=== PATIENT | male | born 1935 | race Caucasian/White ===

== ENCOUNTER 2016-11-12 16:51 | Emergency (ER) | payer OTHER, BC, MEDICARE ==
[~2016-11-12] VITALS: Ht 188 cm; Wt 74.4 kg
[~2016-11-12 16:51] MED LIST: ASPIRIN EC81 M1 PO; FISH OIL300 MG PO; IRON325 M3 PO; MULTI-DAY VITA1 EACH PO; VANCOMYCIN1 GM/2501 IV; VITAMIN E100 UNI2 PO
--- NOTE | 2016-11-12 17:33 | ED GENERAL ADULT ---
History of Present Illness General Chief Complaint: General Adult Stated Complaint: ?FEVER/NO APPETITE/WEIGHT LOSS Source: patient, family, old records Exam Limitations: no limitations Vital Signs & Intake/Output Vital Signs & Intake/Output Vital Signs Date Time Temp Pulse Resp B/P Pulse O2 O2 Flow FiO2 Ox Delivery Rate 11/12 1706 99.5 92 18 114/69 98 Room Air Allergies Coded Allergies: NO KNOWN ALLERGIES (06/18/16) Reconcile Medications Aspirin (Ecotrin*) 81 MG TABLET.DR 1 TAB PO QPM HEART/SUPPLEMENT (Reported) Multivitamin (Multi-Day Vitamins) 1 EACH TABLET 1 TAB PO DAILY SUPPLEMENT ( Reported) [place]-3 Fatty Acids (Fish Oil) (Unknown Strength) CAPSULE (Unknown Dose) PO DAILY SUPPLEMENT (Reported) Vitamin E Mixed (Vitamin E) (Unknown Strength) TABLET 400 UNITS PO SI SUPPLEMENT (Reported) Triage Note: RECEIVED 81 YO MALE C/O FEELS UNDER THE WEATHER THE LAST FEW DAYS, PT REPORTS SLEEPING MORE, WEAK. REPORTS NOT EATING WELL, RECENT WEIGHT LOSS. NO C/O CP/SOB/ABDOMINAL PAIN. Triage Nurses Notes Reviewed? yes Onset: Gradual Duration: day(s): (3), intermittent, waxing and waning Timing: recent history Injury Environment: home Severity: mild Severity Numbers: 4 No Modifying Factors: none Associated Symptoms: denies HPI: 81-year-old male presents with his for evaluation. According to the patient he has been feeling lethargic for the past few days which she attributes to shoveling snow and overdoing it outside. The patient denies any fever chills cough congestion or chest pain palpitations dizziness lightheadedness abdominal pain nausea vomiting or diarrhea. No recent black or bloody stools or recent weight loss. He has not sought care for the symptoms until today because he states his made him come. Patient reports to poor appetite. No urinary symptoms urgency frequency dysuria. There are no modifying factors or associated symptoms otherwise. (LUZ BELL,UMESH) Past History Travel History Traveled to [place] past 21 day No Medical History Any Pertinent Medical History? 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 No (UMESH MORRISON) Review of Systems Review of Systems Constitutional: Reports: see HPI. All Other Systems: Reviewed and Negative Comments Review of systems: See HPI, All other systems negative. Constitutional, no chills no fever, no malaise HEENT: no sore throat no congestion, no ear pain Cardiovascular: No chest pain , no palpitation Skin, no rashes, no change in skin Respiratory: No dyspnea no cough no sputum no hemoptysis GI: No nausea no vomiting, no diarrhea, no bloating/constipation : No dysuria No hematuria, no frequency, no discharge Muscle skeletal: No joint pain, no joint swelling, no back pain Neurologic: No numbness no headache Psych: No stress Heme/endocrine: No bruising no bleeding Immunology: No lymphadenopathy, (UMESH MORRISON) Physical Exam Physical Exam General Appearance: well developed/nourished, alert, awake Comments: Well-developed well-nourished person in no acute distress HEENT: Normal EENT exam; PERRL, EOMI, no nystagmus. HEAD is atraumatic. moist mucous membranes. Neck: Supple, no lymphadenopathy, normal range of motion without pain or tenderness Back: Nontender, no CVA tenderness. Full range of motion Cardiovascular: Regular rate and rhythms no murmurs rubs or gallops, normal JVP Respiratory: Chest nontender.There were no bony deformities, no asymmetry. No respiratory distress. Patient speaking in full complete sentences. Breath sounds clear to auscultation bilaterally: NO W/R/R Abdomen: Soft, nontender nondistended, no appreciable organomegaly. Normal bowel sounds. No rebound/guarding, No appreciable enlargement of the abdominal aorta, No ascites. Extremity: No edema, full range of motion of extremities, normal and equal pulses bilaterally, 5 out of 5 strength noted to bilateral upper and lower extremities Neuro: Alert oriented x3, motor sensory normal, cranial nerves II through XII grossly intact. There were no obvious focal neurologic abnormalities. Skin: No appreciable rash on exposed skin, skin is warm and dry. Psych: Mood and affect is normal, memory and judgment is normal. Core Measures ACS in differential dx? No CVA/TIA Diagnosis: No Severe Sepsis Present: No Septic Shock Present: No (UMESH MORRISON) Progress Differential Diagnoses I considered the following diagnoses in my evaluation of the patient: Plan of Care: Orders Procedure Date/time Status Regular Diet 11/13 B Active LACTIC ACID 11/12 1741 Complete COMPREHENSIVE METABOLIC PANEL 11/12 1741 Complete CBC WITHOUT DIFFERENTIAL 11/12 1741 Complete Laboratory Tests 11/12/161812: Anion Gap 10, Estimated GFR 58 L, BUN/Creatinine Ratio 25.8 H, Glucose 116 H, Lactic Acid 0.9, Calcium 8.4, Total Bilirubin 0.7, AST 23, ALT 33, Alkaline Phosphatase 75, Total Protein 6.5, Albumin 2.9 L, Globulin 3.6, Albumin/ Globulin Ratio 0.8 L, CBC w Diff NO MAN DIFF REQ, RBC 3.69 L, MCV 80.4, MCH 25.8 L, RDW 14.3, MPV 7.8, Gran % 85.3 H, Lymphocytes % 4.8 L, Monocytes % 9.2, Eosinophils % 0.3, Basophils % 0.4, Absolute Granulocytes 9.2 H, Absolute Lymphocytes 0.5 L, Absolute Monocytes 1.0 H, Absolute Eosinophils 0, Absolute Basophils 0, PUBS MCHC 32.2 L Labs ordered patient resting in no apparent distress at this time, patient's H&H is near baseline. pt seen and eval by dr shepard agrees with plan I discussed with the patient at length all of their results including his hyponatremia today need for fluid restriction and close follow-up with his primary care physician Dr. Gay on Tuesday for repeat blood work. I had an extensive conversation regarding need for close follow up with their primary care physician this week as well as return precautions. I answered all of their questions, they feel comfortable with the plan and follow-up care. (UMESH MORRISON) Initial ED EKG: none (UMESH MORRISON) Departure Departure Time of Disposition: 1918 Disposition: HOME OR SELF CARE Condition: Stable Clinical Impression Primary Impression: Hyponatremia Referrals: DEREK GAY MD (PCP/Family) Additional Instructions: follow up with your pmd on tuesday for repeat bloodwork- as dsicussed your sodium level was low today. return to the er at anytime sooner with anytime sooner Departure Forms: Customer Survey General Discharge Information (UMESH MORRISON) PA/ACCOUNT SERVICE ASSOCIATE Co-Sign Statement Statement: ED Attending supervision documentation- [x] I saw and evaluated the patient. I have also reviewed all the pertinent lab results and diagnostic results. I agree with the findings and the plan of care as documented in the PA's/ACCOUNT SERVICE ASSOCIATE's documentation. [] I have reviewed the ED Record and agree with the PA's/ACCOUNT SERVICE ASSOCIATE's documentation. [] Additions or exceptions (if any) to the PAs/ACCOUNT SERVICE ASSOCIATE's note and plan are summarized below: [] (KAMAR SHEPARD DO) Critical Care Note Critical Care Note Critical Care Time: non-applicable (UMESH MORRISON)
[2016-11-12 18:29] LABS: ABSOLUTE BASOPHIL COUNT 0 /CUMM (0.0-0.2); ABSOLUTE EOSINOPHIL COUNT 0 /CUMM (0.0-0.7); ABSOLUTE GRANULOCYTE CT 9.2 /CUMM (1.4-6.5); ABSOLUTE LYMPH COUNT 0.5 /CUMM (1.2-3.4); BASOPHIL % 0.4 % (0.0-2.0); EOSINOPHIL % 0.3 % (0-5); HEMATOCRIT 29.7 % (42-52); MEAN CORPUSCULAR HGB 25.8 PG (27.0-31.0); MEAN CORPUSCULAR HGB CONC 32.2 G/DL (33.0-37.0); MEAN CORPUSCULAR VOLUME 80.4 FL (80.0-94.0); MEAN PLATELET VOLUME 7.8 FL (7.4-10.4); PLATELET COUNT 278 /CUMM (130-400); RBC DISTRIBUTION WIDTH 14.3 % (11.5-14.5); RED BLOOD CELL CT 3.69 /CUMM (4.70-6.10); WHITE BLOOD CELL COUNT 10.8 /CUMM (4.8-10.8)
[2016-11-12 18:39] LABS: GRANULOCYTE % 85.3 % (42.2-75.2)
[2016-11-12 19:54] VITALS: BP 122/65
== END 2016-11-12 20:42 ==
LOC: ERH 16:51
PROVIDERS: Physician Assistant Medical
DX: E87.1 Hypo-osmolality and hyponatremia (principal)

== ENCOUNTER 2016-12-03 16:08 | Emergency (ER) | payer OTHER, BC, MEDICARE ==
[~2016-12-03] VITALS: Ht 188 cm; Wt 77.1 kg
--- NOTE | 2016-12-03 17:09 | ED UPPER/LOWER EXTREMITY COMPL ---
History of Present Illness General Chief Complaint: Hip Injury Stated Complaint: LEFT HIP SWOLLEN/PAINFUL Source: patient Exam Limitations: no limitations Vital Signs & Intake/Output Vital Signs & Intake/Output Vital Signs Date Time Temp Pulse Resp B/P Pulse O2 O2 Flow FiO2 Ox Delivery Rate 12/034 97.0 66 18 138/72 97 Room Air 12/03 2026 97.0 64 20 145/70 97 Room Air 12/03 1848 97 12/03 1822 98.5 73 18 108/58 97 Room Air 12/03 1623 97.9 79 18 135/64 97 Room Air ED Intake and Output 12/04 0000 12/03 1200 Intake Total 120 Output Total Balance 120 Intake, Oral 120 Patient 170 lb Weight Allergies Coded Allergies: NO KNOWN ALLERGIES (06/18/16) Reconcile Medications Amoxicillin/Potassium Clav (Augmentin 875-125 Tablet) 875 MG-125 MG TABLET 1 TAB PO BID CELLULITIS Aspirin (Ecotrin*) 81 MG TABLET.DR 1 TAB PO QPM HEART/SUPPLEMENT (Reported) Multivitamin (Multi-Day Vitamins) 1 EACH TABLET 1 TAB PO DAILY SUPPLEMENT ( Reported) [place]-3 Fatty Acids (Fish Oil) (Unknown Strength) CAPSULE (Unknown Dose) PO DAILY SUPPLEMENT (Reported) Sulfamethoxazole/Trimethoprim (Bactrim Ds Tablet) 800 MG-160 MG TABLET 1 TAB PO BID CELLULITIS Vitamin E Mixed (Vitamin E) (Unknown Strength) TABLET 400 UNITS PO SI SUPPLEMENT (Reported) Triage Note: RECEIVED 81 YO MALE C/O LEFT HIP AREA PAIN WITH WEIGHT BEARING. PT LIFTED 10 GALLONS OF FUEL OIL ABOUT 2 WEEKS AGO AND FELT A CRUNCH BUT NO ACUTE PAIN. ABOUT ONE WEEK AGO, LEFT HIP AREA BECAME REDDISH AND SWELLING DEVELOPED. Triage Nurses Notes Reviewed? yes Onset: Gradual Duration: getting worse Timing: recent history Severity: moderate Severity Numbers: 5 Pain/Injury Location: Left: Hip. HPI: Patient is a 81-year-old male with a past medical history of CAD, status post CABG, MRSA, bacteremia, osteomyelitis of the left fourth toe, ALMA, DVT- NOT ON ANTICOAGULATION and 5 years ago he states that he had a inguinal hernia repair where the prosthetic hip subsequently became infected in which patient had multiple surgical washouts. Patient also states that in September 2016 he had a left leg vascular procedure performed which she does not know specificS however he does state that he was prophylactically administered antibiotics where in the past 2 days he has taken previously prescribed amoxicillin for his symptoms. Patient presents to emergency room stating that 2 weeks ago he was lifting a heavy object with his left hip and upper extremities where he noted acute onset of pain to the left hip. Patient states that he heard audible sound during this event and states that during ambulation makes worse however in the past week he has noticed a gradual onset of swelling redness pain and warmth to the left lateral hip region. Patient states ambulation makes worse however at rest in a seated position he has no pain. Denies any fever chills. Denies any distal leg swelling. Denies any shortness of breath cough hemoptysis chest pain. Patient again did take previously prescribed amoxicillin the past few days for the concerns of infection of his left lateral hip region. (UMESH MEYER) Past History Travel History Traveled to [place] past 21 day No Medical History Any Pertinent Medical History? 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 No (UMESH MEYER) Review of Systems Review of Systems Constitutional: Reports: no symptoms. EENTM: Reports: no symptoms. Respiratory: Reports: no symptoms. Cardiovascular: Reports: no symptoms. Gastrointestinal/Abdominal: Reports: no symptoms. Genitourinary: Reports: no symptoms. Musculoskeletal: Reports: see HPI, joint pain. Skin: Reports: see HPI, erythema. Neurological/Psychological: Reports: no symptoms. Hematologic/Endocrine: Reports: no symptoms. Immunological: Reports: no symptoms. All Other Systems: Reviewed and Negative (UMESH MEYER) Physical Exam Physical Exam General Appearance: no apparent distress, alert, comfortable Neurologic/Tendon: normal sensation, normal motor functions, normal tendon functions, responds to pain, no evidence tendon injury, no pulse deficit Skin: intact Comments: Well-developed well-nourished person in no acute distress HEENT: Normal EENT exam, Neck: Supple, no lymphadenopathy, normal range of motion without pain or tenderness Back: Nontender, no CVA tenderness. Cardiovascular: Regular rate and rhythms no murmurs rubs or gallops, normal JVP Respiratory: Chest nontender. No respiratory distress.breath sounds clear to auscultation bilaterally Abdomen: Soft, nontender nondistended, no appreciable organomegaly. Normal bowel sounds. No ascites Extremity: , no calf tenderness to palpation, normal and equal pulses. Left hip inspection noted to left greater trochanteric region of swelling tenderness warmth and redness AND FLUCTUANCE. Full active range of motion with flexion abduction and mild pain elicited with abduction 5 out of 5 resisted range of motion Left lower extremity dermatomes pedal pulse intact Neuro: Alert oriented x3, motor sensory normal, Skin: No appreciable rash on exposed skin, skin is warm and dry. Psych: Mood and affect is normal, memory and judgment is normal. Diagram Legs Front/Back 1) 4 cm localized swelling with surrounding erythema warmth and tenderness no active discharge (BRYAN BELL,UMESH) Progress Differential Diagnosis: arterial insufficiency, cellulitis, compartment syndrome , contusion, dislocation, DVT, fracture, gout, septic arthritis, sprain, tendon injury Plan of Care: Orders Procedure Date/time Status EXTREMETIES CULTURE 12/03 2052 Active BLOOD CULTURE 12/04 1727 Active LACTIC ACID 12/04 1727 Complete WESTERGREN SED RATE 12/04 1727 Complete C-REACTIVE PROTEIN 12/038 Complete COMPREHENSIVE METABOLIC PANEL 12/03 1728 Complete CBC WITHOUT DIFFERENTIAL 12/03 172 Complete Laboratory Tests 12/03/162027: Lactic Acid Cancelled 12/03/16 1735: Anion Gap 12, Estimated GFR > 60, BUN/Creatinine Ratio 30.9 H, Glucose 93, Lactic Acid 1.3, Calcium 8.6, Total Bilirubin 0.5, AST 23, ALT 33, Alkaline Phosphatase 73, C-Reactive Prot, Quant 3.3 H, Total Protein 7.1, Albumin 3.3 L , Globulin 3.8, Albumin/Globulin Ratio 0.9 L, CBC w Diff NO MAN DIFF REQ, RBC 3.62 L, MCV 78.9 L, MCH 25.1 L, RDW 16.2 H, MPV 7.7, Gran % 66.9, Lymphocytes % 13.2 L, Monocytes % 12.7 H, Eosinophils % 6.1 H, Basophils % 1.1, Absolute Granulocytes 3.5, Absolute Lymphocytes 0.7 L, Absolute Monocytes 0.7 H, Absolute Eosinophils 0.3, Absolute Basophils 0.1, PUBS MCHC 31.9 L, ESR [place] 115 H Microbiology 12/03 2049 EXTREMITIE: Culture & Sensitivity - RECD 12/03 2049 EXTREMITIE: Gram Stain - RECD 12/03 180 BLOOD: Blood Culture - RECD 12/03 173 BLOOD: Blood Culture - RECD Patient has concerns of left hip abscess and cellulitis Afebrile no leukocytosis Patient was strongly advised to follow-up to the emergency room in 2 days for wound recheck. Patient was given Bactrim and Augmentin in the emergency room. Patient was strongly advised to begin antibiotics as directed Patient had significant improvement of the swelling and pain prior to discharge patient had normal steady gait on discharge Discuss disposition AND planning with Dr. Johnson and he agrees (BRYAN BELL,UMESH) Diagnostic Imaging: Viewed by Me: CT Scan. Comments: PATIENT: MATTHEW GARCIA PRESENT AGE: 81 PATIENT ACCOUNT NO: [id number] : 37 LOCATION: [facility] ORDERING PHYSICIAN: UMESH BELL SERVICE DATE: 12/03/16 EXAM TYPE: CAT - CT LOWER EXT W IV CONTRAST EXAMINATION: CT LOWER EXTREMITY WITH CONTRAST, LEFT HIP. CLINICAL INFORMATION: Left hip replacement. Swelling and erythema. History of prosthetic hip infection. COMPARISON: Plain film exam left hip 06/21/2016. MRI left hip 07/28/2016. TECHNIQUE: Axial images obtained through left hip. Coronal and sagittal reformatted images are performed at the CT scanner. DLP: 3794.0 mGy-cm FINDINGS: Status post left hip replacement. This does cause artifact. The femoral and acetabular component are normally articulated. 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 The cortex of the acetabulum over the acetabular component is discontinuous centrally. The iliopsoas muscle deep to the acetabular component has mixed attenuation with hypodense area centrally. This can be due to edema or inflammation but there is no defined fluid collection or abscess. There is joint effusion around the femoral component. Heterotopic bone formation seen around the superior acetabulum and superior to the left hip and greater tuberosity which is chronic unchanged since prior plain film study. No fracture of the proximal femur. No bone destruction of the proximal femur. IMPRESSION: Status post left hip replacement. 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 There is a joint effusion in the hip. There is low attenuation of the iliopsoas muscle deep to the acetabulum which can be edema ,no defined abscess or fluid collection. Further assessment with hip aspiration could be helpful. (UMESH MEYER) Departure Departure Disposition: HOME OR SELF CARE Condition: Stable Clinical Impression Primary Impression: Cellulitis of hip, left Secondary Impressions: Abscess of hip, left Referrals: DOMI LEAL,DEREK (PCP/Family) Additional Instructions: As discussed begin to apply warm compresses to the area Begin the prescription of Bactrim and Augmentin as directed for the full course. Return to emergency room in 2 days for wound recheck. If the dressings fall off reapply with the extra dressings provided to the emergency room. If symptoms worsen return to emergency room sooner. Departure Forms: Customer Survey General Discharge Information Prescriptions: Current Visit Scripts Sulfamethoxazole/Trimethoprim (Bactrim Ds Tablet) 1 TAB PO BID #20 TAB Amoxicillin/Potassium Clav (Augmentin 875-125 Tablet) 1 TAB PO BID #20 TAB (UMESH MEYER) PA/AUDITOR APPRAISER Co-Sign Statement Statement: ED Attending supervision documentation- [] I saw and evaluated the patient. I have also reviewed all the pertinent lab results and diagnostic results. I agree with the findings and the plan of care as documented in the PA's/AUDITOR APPRAISER's documentation. [x] I have reviewed the ED Record and agree with the PA's/AUDITOR APPRAISER's documentation. [] Additions or exceptions (if any) to the PAs/AUDITOR APPRAISER's note and plan are summarized below: [] (ELIZABETH LAEL,MIKE Kowalski) Procedures Incision and Drainage Site: LEFT HIP LATERAL Blade Size: 15 I & D Procedure: Yes: betadine prep, sterile drapes applied, sterile dressing applied. No: wick placed. Progress: Using sterile technique a Betadine I applied 1% lidocaine 5 mL for local anesthesia using a 15 blade I made a 1 cm incision in which moderate purulent discharge was incised. Culture was obtained. Patient tolerated well gauze and Tegaderm were applied. (BRYAN BELL,UMESH)
[2016-12-03 17:57] LABS: ABSOLUTE BASOPHIL COUNT 0.1 /CUMM (0.0-0.2); ABSOLUTE EOSINOPHIL COUNT 0.3 /CUMM (0.0-0.7); ABSOLUTE GRANULOCYTE CT 3.5 /CUMM (1.4-6.5); ABSOLUTE LYMPH COUNT 0.7 /CUMM (1.2-3.4); ABSOLUTE MONOCYTE COUNT 0.7 /CUMM (0.10-0.60); BASOPHIL % 1.1 % (0.0-2.0); EOSINOPHIL % 6.1 % (0-5); GRANULOCYTE % 66.9 % (42.2-75.2); HEMATOCRIT 28.5 % (42-52); MEAN CORPUSCULAR HGB 25.1 PG (27.0-31.0); MEAN CORPUSCULAR HGB CONC 31.9 G/DL (33.0-37.0); MEAN CORPUSCULAR VOLUME 78.9 FL (80.0-94.0); MEAN PLATELET VOLUME 7.7 FL (7.4-10.4); PLATELET COUNT 216 /CUMM (130-400); RBC DISTRIBUTION WIDTH 16.2 % (11.5-14.5); RED BLOOD CELL CT 3.62 /CUMM (4.70-6.10); WHITE BLOOD CELL COUNT 5.2 /CUMM (4.8-10.8)
[2016-12-03] MEDS ORDERED: AUGMENTIN 875-1 EACH PO (20:46)
[2016-12-03] MEDS ORDERED: BACTRIM DS TAB1 EACH PO (20:46)
[2016-12-03 21:34] VITALS: BP 138/72
--- NOTE | 2016-12-03 22:26 | CT SCAN REPORT ---
EXAMINATION: CT LOWER EXTREMITY WITH CONTRAST, LEFT HIP. CLINICAL INFORMATION: Left hip replacement. Swelling and erythema. History of prosthetic hip infection. COMPARISON: Plain film exam left hip 06/21/2016. MRI left hip 07/28/2016. TECHNIQUE: Axial images obtained through left hip. Coronal and sagittal reformatted images are performed at the CT scanner. DLP: 3794.0 mGy-cm FINDINGS: Status post left hip replacement. This does cause artifact. The femoral and acetabular component are normally articulated. 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 The cortex of the acetabulum over the acetabular component is discontinuous centrally. The iliopsoas muscle deep to the acetabular component has mixed attenuation with hypodense area centrally. This can be due to edema or inflammation but there is no defined fluid collection or abscess. There is joint effusion around the femoral component. Heterotopic bone formation seen around the superior acetabulum and superior to the left hip and greater tuberosity which is chronic unchanged since prior plain film study. No fracture of the proximal femur. No bone destruction of the proximal femur. IMPRESSION: Status post left hip replacement. 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 There is a joint effusion in the hip. There is low attenuation of the iliopsoas muscle deep to the acetabulum which can be edema ,no defined abscess or fluid collection. Further assessment with hip aspiration could be helpful.
== END 2016-12-03 21:35 ==
LOC: ERH 16:08
PROVIDERS: Physician Assistant
DX: L02.416 Cutaneous abscess of left lower limb (principal); L03.116 Cellulitis of left lower limb
CPT/HCPCS: 87040; 87070; J3490

== ENCOUNTER 2016-12-06 16:18 | Emergency (ER) | payer OTHER, BC, MEDICARE ==
[~2016-12-06] VITALS: Ht 188 cm; Wt 74.8 kg
[~2016-12-06 16:18] MED LIST changes: +AUGMENTIN 875-1 EACH PO; +BACTRIM DS TAB1 EACH PO
[2016-12-06 16:22] VITALS: BP 148/77
--- NOTE | 2016-12-06 16:58 | ED ANIMAL BITE/WOUND CHECK ---
History of Present Illness General Chief Complaint: Suture Removal/Wound Recheck Stated Complaint: WOUND RECHECK Source: patient, family, old records Exam Limitations: no limitations Vital Signs & Intake/Output Vital Signs & Intake/Output Vital Signs Date Time Temp Pulse Resp B/P Pulse O2 O2 Flow FiO2 Ox Delivery Rate 12/06 1622 98.3 86 18 148/77 98 Room Air ED Intake and Output 12/07 0000 12/06 1200 Intake Total Output Total Balance Patient 165 lb Weight Allergies Coded Allergies: NO KNOWN ALLERGIES (06/18/16) Reconcile Medications Amoxicillin/Potassium Clav (Augmentin 875-125 Tablet) 875 MG-125 MG TABLET 1 TAB PO BID CELLULITIS Aspirin (Ecotrin*) 81 MG TABLET.DR 1 TAB PO QPM HEART/SUPPLEMENT (Reported) Multivitamin (Multi-Day Vitamins) 1 EACH TABLET 1 TAB PO DAILY SUPPLEMENT ( Reported) [place]-3 Fatty Acids (Fish Oil) (Unknown Strength) CAPSULE (Unknown Dose) PO DAILY SUPPLEMENT (Reported) Sulfamethoxazole/Trimethoprim (Bactrim Ds Tablet) 800 MG-160 MG TABLET 1 TAB PO BID CELLULITIS Vitamin E Mixed (Vitamin E) (Unknown Strength) TABLET 400 UNITS PO SI SUPPLEMENT (Reported) Triage Note: HERE FOR WOUND CHECK TO GROIN AREA Triage Nurses Notes Reviewed? yes Onset: Abrupt Duration: day(s): Timing: recent history Injury Environment: home Severity: mild No Modifying Factors: none HPI: 81-year-old male presents here for chief complaint of wound recheck. He had an abscess and cellulitis on his left hip which was drained in the ER. He states he is on antibiotics and the wound is not draining anymore. No fever or chills. Denies any pain at the site. Past History Travel History Traveled to [place] past 21 day No Medical History Any Pertinent Medical History? 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 No Review of Systems Review of Systems Constitutional: Denies: chills, fever. EENTM: Reports: no symptoms. Respiratory: Denies: cough, short of breath. Cardiovascular: Denies: chest pain. GI: Denies: nausea, vomiting. Genitourinary: Reports: no symptoms. Musculoskeletal: Reports: no symptoms. Skin: Reports: see HPI, erythema, lesions. Neurological/Psychological: Reports: no symptoms. Hematologic/Endocrine: Denies: bruising, bleeding, polyuria, polydipsia. Immunologic/Allergic: Denies: splenectomy. All Other Systems: Reviewed and Negative Physical Exam Physical Exam General Appearance: well developed/nourished, alert, awake, mild distress Head: atraumatic Eyes: Bilateral: PERRL, EOMI. Ears, Nose, Throat: normal pharynx, normal ENT inspection, hearing grossly normal Neck: normal inspection, supple Extremities: normal range of motion, healing wound over left lateral hip Neurologic/Psych: awake, alert, oriented x 3, normal mood/affect Skin: intact, normal color, warm/dry Comments: erythema receeding from from [place] previously drawn no further purulence expressed from the wound Progress Differential Diagnosis: abscess, cellulitis Plan of Care: No erythema extending beyond the dermal demarcated line. Unable to express any further drainage from the wound. Sterile dressing placed. Departure Departure Time of Disposition: 1723 Disposition: HOME OR SELF CARE Condition: Stable Clinical Impression Primary Impression: Encounter for wound re-check Referrals: DEREK DURON MD (PCP/Family) Additional Instructions: Please continue and complete the antibiotic course. Follow up in 3-4 days for 1 more wound recheck in the ER. Departure Forms: Customer Survey General Discharge Information
== END 2016-12-06 17:28 ==
LOC: ERH 16:18
DX: Z48.01 Encounter for change or removal of surgical wound dressing (principal)
CPT/HCPCS: 99281

== ENCOUNTER 2016-12-14 13:40 | Emergency (ER) | payer OTHER, BC, MEDICARE ==
[~2016-12-14] VITALS: Ht 188 cm; Wt 77.1 kg
[2016-12-14 13:47] VITALS: BP 149/80
--- NOTE | 2016-12-14 14:22 | ED SKIN/ALLERGY COMPLAINT ---
History of Present Illness General Chief Complaint: Suture Removal/Wound Recheck Stated Complaint: WOUND CHECK Source: patient, old records Exam Limitations: no limitations Vital Signs & Intake/Output Vital Signs & Intake/Output Vital Signs Date Time Temp Pulse Resp B/P B/P Pulse O2 O2 Flow FiO2 Mean Ox Delivery Rate 12/14 1347 98.0 71 20 149/80 96 Room Air Allergies Coded Allergies: NO KNOWN ALLERGIES (06/18/16) Reconcile Medications Amoxicillin/Potassium Clav (Augmentin 875-125 Tablet) 875 MG-125 MG TABLET 1 TAB PO BID CELLULITIS Aspirin (Ecotrin*) 81 MG TABLET.DR 1 TAB PO QPM HEART/SUPPLEMENT (Reported) Multivitamin (Multi-Day Vitamins) 1 EACH TABLET 1 TAB PO DAILY SUPPLEMENT ( Reported) [place]-3 Fatty Acids (Fish Oil) (Unknown Strength) CAPSULE (Unknown Dose) PO DAILY SUPPLEMENT (Reported) Sulfamethoxazole/Trimethoprim (Bactrim Ds Tablet) 800 MG-160 MG TABLET 1 TAB PO BID CELLULITIS Vitamin E Mixed (Vitamin E) (Unknown Strength) TABLET 400 UNITS PO SI SUPPLEMENT (Reported) Triage Note: PT TO ED FOR WOUND CHECK TO LEFT HIP. Triage Nurses Notes Reviewed? yes HPI: Patient presents for evaluation of cellulitis over the left hip after an incision and drainage of an abscess on December 03. Patient was seen after that and diagnosed with cellulitis in the area. He was placed on antibiotics and instructed to return for reevaluation. Patient has no specific complaint at this time Past History Travel History Traveled to [place] past 21 day No Medical History Any Pertinent Medical History? 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 No Review of Systems Review of Systems Constitutional: Reports: no symptoms. EENTM: Reports: no symptoms. Respiratory: Reports: no symptoms. Cardiovascular: Reports: no symptoms. GI: Reports: no symptoms. Genitourinary: Reports: no symptoms. Musculoskeletal: Reports: no symptoms. Skin: Reports: see HPI. Neurological/Psychological: Reports: no symptoms. Hematologic/Endocrine: Reports: no symptoms. Immunologic/Allergic: Reports: no symptoms. All Other Systems: Reviewed and Negative Physical Exam Physical Exam General Appearance: see below Comments: Gen.: Well-nourished, well-developed, no acute respiratory distress. Head: Normocephalic, atraumatic. Eyes: Normal inspection bilaterally Ears: Normal inspection bilaterally Nose: Normal inspection, nasal cannula in place Throat/mouth : Moist mucosa Neck: Supple, full range of motion, no goiter Heart: Regular rate and rhythm Lungs: Quiet respirations Back: Normal range of motion Extremities: Left hip: Mild soft tissue swelling in the area of an incision and drainage, there is no erythema or warmth. There is a blue marker line that I presume demarcated the patient's cellulitis. Again there is no erythema present. Neurologic: Cranial nerves grossly intact, speech is clear Skin: warm and dry Psychiatric: Calm, cooperative, no apparent delusions or hallucinations Progress Differential Diagnosis: abscess/cellulitis Plan of Care: Continue current management. Departure Departure Disposition: HOME OR SELF CARE Condition: Stable Clinical Impression Primary Impression: Cellulitis of left hip Referrals: DEREK DURON MD (PCP/Family) Additional Instructions: Current management and follow-up with your primary care physician in one week for reevaluation. Return if any concerns or sudden worsening. Thank you for choosing the [facility] Emergency Department for your care. It was a pleasure to serve you today. Giancarlo Mujica M.D. [facility] Departure Forms: Customer Survey General Discharge Information
== END 2016-12-14 15:37 ==
LOC: ERH 13:40
DX: Z48.01 Encounter for change or removal of surgical wound dressing (principal)
CPT/HCPCS: 99281

== ENCOUNTER 2017-01-16 13:50 | Emergency (ER) | payer OTHER, BC, MEDICARE ==
[2017-01-16 13:59] VITALS: BP 171/76
--- NOTE | 2017-01-16 15:05 | ED SKIN/ALLERGY COMPLAINT ---
History of Present Illness General Chief Complaint: Skin Rash/ Abcess Stated Complaint: SKIN RASH L HIP Source: patient, family, old records Exam Limitations: no limitations Vital Signs & Intake/Output Vital Signs & Intake/Output Vital Signs Date Time Temp Pulse Resp B/P B/P Pulse O2 O2 Flow FiO2 Mean Ox Delivery Rate 01/16 1359 98.4 80 16 171/76 98 Room Air Room Air Allergies Coded Allergies: NO KNOWN ALLERGIES (06/18/16) Reconcile Medications Amoxicillin 875 MG TABLET 1 TAB PO BID cellulitis Amoxicillin/Potassium Clav (Augmentin 875-125 Tablet) 875 MG-125 MG TABLET 1 TAB PO BID CELLULITIS Aspirin (Ecotrin*) 81 MG TABLET.DR 1 TAB PO QPM HEART/SUPPLEMENT (Reported) Multivitamin (Multi-Day Vitamins) 1 EACH TABLET 1 TAB PO DAILY SUPPLEMENT ( Reported) [place]-3 Fatty Acids (Fish Oil) (Unknown Strength) CAPSULE (Unknown Dose) PO DAILY SUPPLEMENT (Reported) Sulfamethoxazole/Trimethoprim (Bactrim Ds Tablet) 800 MG-160 MG TABLET 1 TAB PO BID cellulitis Sulfamethoxazole/Trimethoprim (Bactrim Ds Tablet) 800 MG-160 MG TABLET 1 TAB PO BID CELLULITIS Vitamin E Mixed (Vitamin E) (Unknown Strength) TABLET 400 UNITS PO SI SUPPLEMENT (Reported) Triage Note: PT STATES HE HAS A RED RASH TO HIS LEFT HIP. DENIES FEVERS. PAINFUL AT TIMES Triage Nurses Notes Reviewed? yes Onset: Abrupt Duration: day(s):, constant, continues in ED Timing: recent history Severity: mild, moderate Location: extremities (left hip) No Modifying Factors: none Associated Symptoms: swelling/mass/lumps (left hip) HPI: 81-year-old male with past medical history of CAD and recurrent left hip abscess presents with swelling pain and spreading redness on the left hip the past few days. Patient has had abscess I&D in the same spot couple months ago. He has a hip prosthesis on the left side that has been infected previously. The current episode started a few days ago and is worsening. She denies any discharge or any fevers and overall feels well. He denies any pain with range of motion of the hip. (VAIBHAV BELL,BARBI) Past History Travel History Traveled to [place] past 21 day No Medical History Any Pertinent Medical History? 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 Yes (BARBI ROJAS) Review of Systems Review of Systems Constitutional: Reports: no symptoms. Skin: Reports: see HPI. All Other Systems: Reviewed and Negative (BARBI ROJAS) Physical Exam Physical Exam General Appearance: well developed/nourished, no apparent distress, alert, awake Head: atraumatic, normal appearance Eyes: Bilateral: normal appearance, PERRL, EOMI. Ears, Nose, Throat: normal ENT inspection Neck: normal inspection, supple Respiratory: normal breath sounds, no respiratory distress Cardiovascular: regular rate/rhythm Peripheral Pulses: 1+ tibialis posterior (L) Gastrointestinal: soft, non-tender, no organomegaly Back: normal inspection, normal range of motion Extremities: swelling (left hip), tenderness (left hip) Neurologic/Psych: no motor/sensory deficits, awake, alert, oriented x 3, normal gait, normal mood/affect Skin: intact, rash (erythema left hip) Skin Problem Location: lower extremities (left hip) Skin Problem Character: abcess, erythema, swelling, tenderness Lymphatic: inguinal node tender (L) Comments: There is a 3 cm area of focal fluctuance and erythema located on the left hip over the incision from a previous hip replacement. There is surrounding induration and erythema. The area is tender to palpation. No discharge. Some left inguinal lymphadenopathy is noted. Diagram Body: 1) abscess/erythema (BARBI ROJAS) Progress Differential Diagnosis: abscess/cellulitis, anaphylaxis, angioedema, contact dermatitis, drug reaction, erythema multiforme, urticaria, septic joint (BARBI ROJAS) Plan of Care: Orders Procedure Date/time Status EXTREMETIES CULTURE 01/16 1500 Active Microbiology 01/16 1500 EXTREMITIE: Culture & Sensitivity - RECD 01/16 1500 EXTREMITIE: Gram Stain - RECD I/D was performed, cultures sent, and a dressing placed over the abscess. Patient was put on amoxicillin and Bactrim twice a day for 10 days. He will return to the emergency department 2 or 3 days for wound check and packing removal. Patient will also follow-up with his orthopedic doctor and primary care doctor this week. Patient was nontoxic appearing at discharge. We will follow up on culture results and follow-up visit. Patient was seen and evaluated by Dr. Mujica. Patient understands and agrees with plan of care. (BARBI ROJAS) Departure Departure Disposition: HOME OR SELF CARE Condition: Stable Clinical Impression Primary Impression: Cellulitis and abscess of left lower extremity Secondary Impressions: Abscess of hip, left Referrals: DOMI LEAL,DEREK (PCP/Family) Additional Instructions: Rest avoid excessive physical activity. Keep the area clean and dry. Monitor the dressing if the gauze becomes completely saturated and discharge remove it and replaced the gauze with a fresh dressing. Take both antibiotics for the full course as directed. Use Tylenol thousand milligrams every 6-8 hours as needed for pain. Monitor symptoms if you have fever additional pain swelling discharge any other concerns return to the emergency department right away. Return to the emergency department in 2 days for wound check and packing removal. Also to follow-up with the orthopedic doctor Dr. Ray and your primary care doctor this week. Departure Forms: Customer Survey General Discharge Information Prescriptions: Current Visit Scripts Amoxicillin 1 TAB PO BID #20 TAB Sulfamethoxazole/Trimethoprim (Bactrim Ds Tablet) 1 TAB PO BID #20 TAB (BARBI ROJAS) PA/SPORTS LEADERSHIP INSTRUCTOR Co-Sign Statement Statement: ED Attending supervision documentation- [X] I saw and evaluated the patient. I have also reviewed all the pertinent lab results and diagnostic results. I agree with the findings and the plan of care as documented in the PA's/SPORTS LEADERSHIP INSTRUCTOR's documentation. [] I have reviewed the ED Record and agree with the PA's/SPORTS LEADERSHIP INSTRUCTOR's documentation. [] Additions or exceptions (if any) to the PAs/SPORTS LEADERSHIP INSTRUCTOR's note and plan are summarized below: [] (NHUNG LEAL,KAMAR Gil) Procedures Incision and Drainage Site: left hip skin Blade Size: 11 I & D Procedure: Yes: betadine prep, sterile drapes applied, sterile dressing applied, wick placed. Progress: The area was cleaned with Betadine. 4 mL of 1% lidocaine without epi were applied for local pain control. An 11 blade was used to open the area of fluctuance. Large amount of purulent material was expressed. Culture obtained. Abscess pocket was flushed and all purulent material removed. Therefore packing was placed and a dressing was placed. She tolerated procedure well without any immediate competitions. (VAIBHAV BELL,BARBI)
[2017-01-16] MEDS ORDERED: BACTRIM DS TAB1 EACH PO ×2 (15:07→15:38)
[2017-01-16] MEDS ORDERED: AMOXICILLIN875 M1 PO ×2 (15:07→15:38)
== END 2017-01-16 15:18 ==
LOC: ERH 13:50
DX: L03.116 Cellulitis of left lower limb (principal); L02.416 Cutaneous abscess of left lower limb
CPT/HCPCS: 87070; 87147

== ENCOUNTER 2017-01-18 14:03 | Emergency (ER) | payer OTHER, BC, MEDICARE ==
[~2017-01-18] VITALS: Ht 188 cm; Wt 79.4 kg
[~2017-01-18 14:03] MED LIST changes: +AMOXICILLIN875 M1 PO
[2017-01-18 14:09] VITALS: BP 166/72
--- NOTE | 2017-01-18 14:23 | ED SKIN/ALLERGY COMPLAINT ---
History of Present Illness General Chief Complaint: Suture Removal/Wound Recheck Stated Complaint: WOUND RECHECK Source: patient, old records Exam Limitations: no limitations Vital Signs & Intake/Output Vital Signs & Intake/Output Vital Signs Date Time Temp Pulse Resp B/P B/P Pulse O2 O2 Flow FiO2 Mean Ox Delivery Rate 01/18 1409 97.1 72 18 166/72 100 Room Air Allergies Coded Allergies: NO KNOWN ALLERGIES (06/18/16) Reconcile Medications Amoxicillin 875 MG TABLET 1 TAB PO BID cellulitis Amoxicillin/Potassium Clav (Augmentin 875-125 Tablet) 875 MG-125 MG TABLET 1 TAB PO BID CELLULITIS Aspirin (Ecotrin*) 81 MG TABLET.DR 1 TAB PO QPM HEART/SUPPLEMENT (Reported) Multivitamin (Multi-Day Vitamins) 1 EACH TABLET 1 TAB PO DAILY SUPPLEMENT ( Reported) [place]-3 Fatty Acids (Fish Oil) (Unknown Strength) CAPSULE (Unknown Dose) PO DAILY SUPPLEMENT (Reported) Sulfamethoxazole/Trimethoprim (Bactrim Ds Tablet) 800 MG-160 MG TABLET 1 TAB PO BID cellulitis Sulfamethoxazole/Trimethoprim (Bactrim Ds Tablet) 800 MG-160 MG TABLET 1 TAB PO BID CELLULITIS Vitamin E Mixed (Vitamin E) (Unknown Strength) TABLET 400 UNITS PO SI SUPPLEMENT (Reported) Triage Note: HERE FOR RECHECK OF LEFT HIP CELLULITIS, SEEN HERE 2 DAYS AGO FOR SAME. ON ABX. Triage Nurses Notes Reviewed? yes Onset: Abrupt Duration: day(s):, constant, continues in ED Timing: recent history Location: extremities No Modifying Factors: none HPI: 81-year-old male comes into emergency room for wound check of abscess to left hip. Patient has been taking Bactrim and amoxicillin. Patient reports significant improvement. Denies any fever chills. Patient is following up with his primary care doctor as well as his orthopedic doctor this week. Denies any other associated symptoms. Denies any pain currently. (BARBI ROJAS) Past History Travel History Traveled to [place] past 21 day No Medical History Any Pertinent Medical History? 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 No (BARBI ROJAS) Review of Systems Review of Systems Constitutional: Reports: no symptoms. EENTM: Reports: no symptoms. Respiratory: Reports: no symptoms. Cardiovascular: Reports: no symptoms. GI: Reports: no symptoms. Genitourinary: Reports: no symptoms. Musculoskeletal: Reports: no symptoms. Skin: Reports: see HPI. Neurological/Psychological: Reports: no symptoms. Hematologic/Endocrine: Reports: no symptoms. Immunologic/Allergic: Reports: no symptoms. All Other Systems: Reviewed and Negative (BARBI ROJAS) Physical Exam Physical Exam General Appearance: well developed/nourished, mild distress Head: atraumatic Eyes: Bilateral: normal appearance. Ears, Nose, Throat: normal ENT inspection, hearing grossly normal Neck: normal inspection Respiratory: no respiratory distress Cardiovascular: regular rate/rhythm Back: normal inspection Extremities: normal inspection, normal range of motion, no edema Neurologic/Psych: awake, alert, oriented x 3, normal mood/affect Skin: intact, rash Skin Problem Location: no induration, no erythema, no current discharge, packing removed, Lymphatic: no anterior cervical kari (BARBI ROJAS) Progress Differential Diagnosis: abscess/cellulitis, allergic reaction, anaphylaxis, angioedema, contact dermatitis, drug reaction Plan of Care: 01/18/2017 3:20:07 PM Packing removed. Patient clinically looks well. No signs of infection. Return if any other concerns. (BARBI ROJAS) Departure Departure Disposition: HOME OR SELF CARE Condition: Stable Clinical Impression Primary Impression: Encounter for recheck of abscess following incision and drainage Referrals: DEREK DURON MD (PCP/Family) Additional Instructions: Warm soaks at home. Finish course of antibiotics. Follow-up with the orthopedic doctor this week. Return if any concerns worsening symptoms. Please go over all results of today's visit with your primary care doctor. Contact your primary care doctor to let them know you were here in the emergency room. There may be nonspecific findings which may not be related to your visit today here in the emergency room but may require further evaluation and chronic monitoring by your primary care doctor. If you had a laceration today the chance of foreign body always remains. You should follow-up with your primary care doctor for recheck in 3-5 days for a wound check. If you had an x-ray done there is a chance that a fracture could have been missed on initial read and you should follow-up with your primary care doctor for repeat x-rays if symptoms persist. If your blood pressure was elevated here in the emergency room please have rechecked by her primary care doctor within the next 48 hours by your primary care doctor. If you were prescribed a narcotic here in the emergency room or any type of controlled substances you're not allowed to drive while taking this medication or operate any type of heavy machinery. Narcotics can make you feel lightheaded dizziness nausea and can cause constipation. You may need to bean picker machine operator a stool softener. Thank you for choosing [facility] emergency room. Please return to the emergency room immediately if you have any other concerns worsening of symptoms. Departure Forms: Customer Survey General Discharge Information (BARBI ROJAS) PA/SHIP WORKER Co-Sign Statement Statement: ED Attending supervision documentation- [] I saw and evaluated the patient. I have also reviewed all the pertinent lab results and diagnostic results. I agree with the findings and the plan of care as documented in the PA's/SHIP WORKER's documentation. [X] I have reviewed the ED Record and agree with the PA's/SHIP WORKER's documentation. [] Additions or exceptions (if any) to the PAs/SHIP WORKER's note and plan are summarized below: [] (ERIC LEAL,ТАТЬЯНА)
== END 2017-01-18 14:30 ==
LOC: ERH 14:03
DX: Z48.01 Encounter for change or removal of surgical wound dressing (principal)
CPT/HCPCS: 99281

== ENCOUNTER 2017-09-03 14:42 | Emergency (ER) | payer OTHER, BC, MEDICARE ==
[~2017-09-03] VITALS: Ht 190.5 cm; Wt 86.2 kg
[~2017-09-03 14:42] MED LIST changes: +MULTI-DAY PLUS1 EAC1 PO; -MULTI-DAY VITA1 EACH PO; +PROAIR HFA8.5 GM INH
[2017-09-03 14:50] VITALS: BP 124/74
--- NOTE | 2017-09-03 14:57 | ED ANIMAL BITE/WOUND CHECK ---
History of Present Illness General Chief Complaint: General Adult Stated Complaint: WOUND CHECK Source: patient, old records Exam Limitations: no limitations Vital Signs & Intake/Output Vital Signs & Intake/Output Vital Signs Date Time Temp Pulse Resp B/P B/P Pulse O2 O2 Flow FiO2 Mean Ox Delivery Rate 09/03 1450 98.6 64 18 124/74 99 Room Air ED Intake and Output 09/04 0000 09/03 1200 Intake Total 0 Output Total Balance 0 Intake, Oral 0 Patient 190 lb Weight Weight Reported by Patient Measurement Method Allergies Coded Allergies: NO KNOWN ALLERGIES (06/18/16) Reconcile Medications Albuterol Sulfate (Proair Hfa) 90 MCG HFA.AER.AD 2 PUF INH Q4-6 PRN PRN COUGH Amoxicillin/Potassium Clav (Augmentin 875-125 Tablet) 875 MG-125 MG TABLET 1 TAB PO BID ABSCESS/SINUSITIS Aspirin (Ecotrin*) 81 MG TABLET.DR 1 TAB PO QPM HEART/SUPPLEMENT (Reported) Multivitamin-Min/Iron/FA/Vit K (Multi-Day Plus Minerals Tablet) 18 MG IRON-400 MCG-25 MCG TABLET 1 TAB PO DAILY SUPPLEMENT (Reported) Sulfamethoxazole/Trimethoprim (Bactrim Ds Tablet) 800 MG-160 MG TABLET 1 TAB PO BID ABSCESS Triage Note: PT TO ED FOR L HIP PAIN, PT REPORTING HE HAS A CHRONIC INJURY TO THE L HIP "AND IT GETS RED AND INFLAMMED AND I COME HERE AND YOU MAKE IT BETTER" Triage Nurses Notes Reviewed? yes Onset: Abrupt Duration: week(s): (1), better Timing: recent history Injury Environment: home Is Injury an Animal Bite? No Severity: mild Severity Numbers: 1 No Modifying Factors: none Associated Symptoms: denies HPI: 82 Year old male with history of afib, cad, tia, pud presents for wound check. pt was seen in this er 1 week ago for abscess to left hip requiring i&D and antibiotics. He is here today for wound check, he denies any other complaints, no fever, chills, discharge from wound. he has 3 day sof the course of antibiotics left. no other complaints,no pain (Van Sellers) Past History Travel History Traveled to [place] past 21 day No Medical History Any Pertinent Medical History? 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 No (Van Sellers) Review of Systems Review of Systems Constitutional: Reports: see HPI. Comments Review of systems: See HPI, All other systems negative. Constitutional, no chills no fever, HEENT: no sore throat no congestion Cardiovascular: No chest pain Skin: SEE HPI Respiratory: No dyspnea no cough GI: No nausea no vomiting Muscle skeletal: No joint pain, no back pain Neurologic: , no headache Heme/endocrine: No bruising Immunology: No lymphadenopathy (Van Sellers) Physical Exam Physical Exam General Appearance: well developed/nourished, no apparent distress, alert Comments: Well-developed well-nourished patient in no apparent distress. HEENT: Atraumatic, extraocular motion intact Neck: Supple, FROM Back: FROM Respiratory: No respiratory distress. Patient speaking in full complete sentences. Breath sounds clear to auscultation bilaterally: NO W/R/R Extremities: full range of motion Neuro: awake, alert, and oriented to person, place and time. There were no obvious focal neurologic abnormalities. Skin: Warm & dry, abscess to left hip, dry no discharge, no induration or fluctuance, nontender Psych: Mood affect normal, normal memory normal judgment. (Van Sellers) Progress Differential Diagnosis: abscess, cellulitis Plan of Care: abscesll well healing, d/w pt plan of care, he had 3 days of abx left. he feels comfortable with plan (Van Sellers) Departure Departure Time of Disposition: 1507 Disposition: HOME OR SELF CARE Condition: Stable Clinical Impression Primary Impression: Wound check, abscess Referrals: Victor Hugo LEAL,Refugio (PCP/Family) Departure Forms: Customer Survey General Discharge Information (Sumi BELL,Van) Resident Co-Sign Statement Statement: ED Attending supervision documentation- [] I saw and evaluated the patient. I have also reviewed all the pertinent lab results and diagnostic results. I agree with the findings and the plan of care as documented in the Resident's documentation. [X] I have reviewed the ED Record and agree with the Resident's documentation. [] Additions or exceptions (if any) to the Resident's note and plan are summarized below: [] (Frankie LEAL,Barbara)
== END 2017-09-03 15:10 ==
LOC: ERH 14:42
DX: Z48.00 Encounter for change or removal of nonsurgical wound dressing (principal)

== ENCOUNTER 2017-11-07 14:40 | Emergency (ER) | payer OTHER, BC, MEDICARE ==
[~2017-11-07] VITALS: Ht 188 cm; Wt 83.9 kg
--- NOTE | 2017-11-07 16:53 | ED SKIN/ALLERGY COMPLAINT ---
History of Present Illness General Chief Complaint: Skin Rash/ Abcess Stated Complaint: CYST ON HIP Source: patient Exam Limitations: no limitations Vital Signs & Intake/Output Vital Signs & Intake/Output Vital Signs Date Time Temp Pulse Resp B/P B/P Pulse O2 O2 Flow FiO2 Mean Ox Delivery Rate 11/07 1721 98.1 68 12 141/68 99 Room Air 11/07 1445 97.8 84 20 150/80 99 Room Air Allergies Coded Allergies: NO KNOWN ALLERGIES (06/18/16) Reconcile Medications Amoxicillin/Potassium Clav (Augmentin 875-125 Tablet) 875 MG-125 MG TABLET 1 TAB PO BID CELLULITIS ABSCESS Aspirin (Ecotrin*) 81 MG TABLET.DR 1 TAB PO QPM HEART/SUPPLEMENT (Reported) Multivitamin-Min/Iron/FA/Vit K (Multi-Day Plus Minerals Tablet) 18 MG IRON-400 MCG-25 MCG TABLET 1 TAB PO DAILY SUPPLEMENT (Reported) Sulfamethoxazole/Trimethoprim (Bactrim Ds Tablet) 800 MG-160 MG TABLET 1 TAB PO BID ABSCESS Triage Note: PT TO ED FROM WOUND CENTER FOR ABSCESS TO LEFT HIP. STATES IT NEEDS TO BE DRAINED AGAIN BEFORE THE WOUND CENTER CAN HELP HIM Triage Nurses Notes Reviewed? yes Onset: Gradual Duration: week(s): Location: torso Possible Factors: no cause identified HPI: This is an 82 year old male with a PMH of hip replacement sugery on the left side 4 years ago that comes to us for drainage of his left hip abscess. The patient has been to see us multiple times for drainage of this abscess. 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 Currently, patient is on detention amoxicillin and bactrim for this recurring abscess. He was last seen here for drainage a week ago. The abscess began 3 months ago with redness, edema, and tenderness. He states that he came to the wound center today to have it drained as he didnt want to "bother you in the ER". He was toldthat they do not drain wounds so was sent here. He has made an appointment with surgery Dr. Tapia or Dr. Louie for removal of the abscess core on Tuesday (earliest they could see him) but as a snow storm is approaching and the abscess is quite uncomfortable, he came here. 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 Other Medical Hx: Bacteremia History of MRSA: Yes History of VRE: No History of CDIFF: No Surgical History Surgical History: CABG, hernia repair-inguinal (left side), hip replacement ( left hip), 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 Hx Contributory? No (Gabby Reed MD) Medical History Any Pertinent Medical History? see below for history (Han Valdez MD) Review of Systems Review of Systems Constitutional: Reports: no symptoms. Skin: Reports: see HPI, cysts, lesions. (Gabby Reed MD) Review of Systems Constitutional: Reports: no symptoms. EENTM: Reports: no symptoms. Respiratory: Reports: no symptoms. Cardiovascular: Reports: no symptoms. GI: Reports: no symptoms. Genitourinary: Reports: no symptoms. Musculoskeletal: Reports: no symptoms. Neurological/Psychological: Reports: no symptoms. Hematologic/Endocrine: Reports: no symptoms. Immunologic/Allergic: Reports: no symptoms. All Other Systems: Reviewed and Negative (Han Valdez MD) Physical Exam Physical Exam General Appearance: well developed/nourished, no apparent distress, alert, awake Head: atraumatic, normal appearance Respiratory: normal breath sounds Cardiovascular: regular rate/rhythm Peripheral Pulses: 2+ femoral (L) Gastrointestinal: normal bowel sounds, soft, non-tender Back: normal inspection, normal range of motion Extremities: normal inspection, normal capillary refill, normal range of motion, no edema Skin Problem Location: torso Skin Problem Character: abcess Diagram Body: 1) (Gabby Reed MD) Physical Exam General Appearance: well developed/nourished, mild distress Head: atraumatic Eyes: Bilateral: PERRL, EOMI. Ears, Nose, Throat: normal pharynx, normal ENT inspection, hearing grossly normal Neck: normal inspection, supple Respiratory: normal breath sounds Cardiovascular: regular rate/rhythm Gastrointestinal: soft, non-tender Back: normal inspection Extremities: normal inspection, normal range of motion, no edema Neurologic/Psych: awake, alert, oriented x 3, normal mood/affect Reflexes: 2+: bicep (R), bicep (L). Skin: rash Lymphatic: no anterior cervical kari (Han Valdez MD) Progress Differential Diagnosis: abscess/cellulitis Plan of Care: Orders Procedure Date/time Status TRUNK AREA CULTURE 11/07 1655 Active Microbiology 11/07 UNK TRUNK: Culture & Sensitivity - RECD 11/07 UNK TRUNK: Gram Stain - RECD Patient is here for drainage of his left hip abscess. We will drain the abscess for him with lidocaine 1% intradermal, take a culture of the wound. He is refused superficial ultrasound of the wound to determine depth. patient will follow up with surgeon for definitive treatment of the abscess on tuesday, weather permitting. (Gabby Reed MD) Departure Departure Disposition: HOME OR SELF CARE Condition: Stable Clinical Impression Primary Impression: Abscess Referrals: Refugio Gay MD (PCP/Family) Additional Instructions: Please return to ED if abscess grows and you are not able to make it to surgeons office. please return if fever or chills or severe hip pain. Departure Forms: Customer Survey General Discharge Information (Gabby Reed MD) Resident Co-Sign Statement Statement: ED Attending supervision documentation- x I saw and evaluated the patient. I have also reviewed all the pertinent lab results and diagnostic results. I agree with the findings and the plan of care as documented in the Resident's documentation. [] I have reviewed the ED Record and agree with the Resident's documentation. [] Additions or exceptions (if any) to the Resident's note and plan are summarized below: [] (Han Valdez MD) Procedures Incision and Drainage Site: L hip Blade Size: 10 I & D Procedure: Yes: betadine prep, sterile drapes applied, sterile dressing applied. No: wick placed. (Han Valdez MD)
[2017-11-07 17:21] VITALS: BP 141/68
== END 2017-11-07 17:56 ==
LOC: ERH 14:40
DX: L02.416 Cutaneous abscess of left lower limb (principal)
CPT/HCPCS: 87070

== ENCOUNTER 2017-12-01 10:50 | Emergency (ER) | payer OTHER, BC, MEDICARE ==
[~2017-12-01] VITALS: Ht 188 cm; Wt 81.6 kg
--- NOTE | 2017-12-01 13:49 | ED SKIN/ALLERGY COMPLAINT ---
History of Present Illness General Chief Complaint: General Adult Stated Complaint: SENT IN BY FOR ABCESS Source: patient, old records Exam Limitations: no limitations Vital Signs & Intake/Output Vital Signs & Intake/Output Vital Signs Date Time Temp Pulse Resp B/P B/P Pulse O2 O2 Flow FiO2 Mean Ox Delivery Rate 12/01 1404 97.0 70 20 140/70 98 Room Air 12/01 1114 97.7 68 20 143/67 97 Room Air Allergies Coded Allergies: NO KNOWN ALLERGIES (06/18/16) Reconcile Medications Amoxicillin/Potassium Clav (Augmentin 875-125 Tablet) 875 MG-125 MG TABLET 1 TAB PO BID CELLULITIS ABSCESS Aspirin (Ecotrin*) 81 MG TABLET. 1 TAB PO QPM HEART/SUPPLEMENT (Reported) Multivitamin-Min/Iron/FA/Vit K (Multi-Day Plus Minerals Tablet) 18 MG IRON-400 MCG-25 MCG TABLET 1 TAB PO DAILY SUPPLEMENT (Reported) Sulfamethoxazole/Trimethoprim (Bactrim Ds Tablet) 800 MG-160 MG TABLET 1 TAB PO BID ABSCESS Triage Note: PT HERE FOR ABSCESS TO LEFT HIP. SEEN HERE FOR SAME PROBLEM MULTIPLE TIMES. SAW DR ROBERTSON YESTERDAY FOR SAME ISSUE Triage Nurses Notes Reviewed? yes Onset: Gradual Duration: week(s):, intermittent, waxing and waning Timing: recent history Severity: mild Severity Numbers: 1 Location: L HIP No Modifying Factors: none Associated Symptoms: DENIES HPI: 82-year-old male history of A. fib coronary artery disease presents to ER for evaluation with recurrent abscess to the left hip for wound check today.. HE Is a course of Bactrim, he denies any discharge or drainage noted on his dressing. No fever chills diaphoresis abdominal pain. He denies any difficulty with movement of his hip. He denies pain no modifying factors or associated symptoms. Past History Travel History Traveled to [place] past 21 day No Medical History Any Pertinent Medical History? 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 No Review of Systems Review of Systems Constitutional: Reports: see HPI. Comments Review of systems: See HPI, All other systems negative. Constitutional, no chills no fever, HEENT: no sore throat no congestion Cardiovascular: No chest pain Skin: SEE HPI Respiratory: No dyspnea no cough GI: No nausea no vomiting : No dysuria Muscle skeletal: No joint pain, no back pain, Neurologic: , no headache Heme/endocrine: No bruising Physical Exam Physical Exam General Appearance: well developed/nourished, no apparent distress, alert Comments: Well-developed well-nourished patient in no apparent distress. HEENT: Atraumatic, extraocular motion intact Neck: Supple, FROM Back: FROM Respiratory: No respiratory distress. Patient speaking in full complete sentences. Extremities: full range of motion nontender Neuro: awake, alert, and oriented to person, place and time. There were no obvious focal neurologic abnormalities. Skin: Warm & dry, there is no erythema induration and fluctuance noted to the left hip, Psych: Mood affect normal, normal memory normal judgment. Progress Differential Diagnosis: abscess/cellulitis, allergic reaction, contact dermatitis, erythema multiforme Plan of Care: I discussed with the patient plan of care I advised there is no need for incision and drainage at this time he's currently on Bactrim which I advised him finished a course of. Advise close follow-up with his primary care physician return precautions were discussed at least. He feels comfortable with this plan Departure Departure Time of Disposition: 1358 Disposition: HOME OR SELF CARE Condition: Stable Clinical Impression Primary Impression: Wound check, abscess Referrals: Dez LEAL,Shade (PCP/Family) Additional Instructions: Follow-up with your primary care physician. Return to ER with any concerns. Departure Forms: Customer Survey General Discharge Information
[2017-12-01 14:04] VITALS: BP 140/70
== END 2017-12-01 14:04 ==
LOC: ERH 10:50
DX: Z48.00 Encounter for change or removal of nonsurgical wound dressing (principal)